=== PATIENT | male | born 1965 | race Caucasian/White ===

== ENCOUNTER 2022-08-27 08:18 | Day surgery (SDC) | payer BC ==
[2022-08-23 13:48] VITALS: BMI 35.6
[2022-08-27] MEDS ORDERED: BUPIVACAINE HCL/PF 2.5 MG/ML - 30 ML VIAL IJ ONE (10:09)
[2022-08-27] MEDS ORDERED: LIDOCAINE HCL 2% 100 MG/5 ML DISP.SYRIN ONE (11:18)
[2022-08-27] MEDS ORDERED: PROPOFOL 20 ML ONE (11:19)
[2022-08-27] MEDS ORDERED: MIDAZOLAM HCL 2 MG/2 ML SINGLE DOSE VIAL ONE (11:19)
[2022-08-27] MEDS ORDERED: EPINEPHrine 1:1,000 1,000 MCG/ML ML ONE (11:54)
[2022-08-27] MEDS ORDERED: ceFAZolin SODIUM 1 GM VIAL ONE (12:28)
[2022-08-27] MEDS ORDERED: ONDANSETRON 4 MG/2 ML VIAL IVPUSH PRN (13:03)
[2022-08-27] MEDS ORDERED: PROMETHAZINE HCL 25 MG/1 ML VIAL IVPUSH PRN (13:03)
[2022-08-27] MEDS ORDERED: oxyCODONE HCL 5 MG TABLET PO PRN ×2 (13:03)
[2022-08-27] MEDS ORDERED: LACTATED RINGERS SOLUTION 1,000 ML IV SCH (13:15)
[2022-08-27] MEDS ORDERED: KETOROLAC TROMETHAMINE 30 MG/1 ML VIAL IVPUSH ONE (13:15)
[2022-08-27 13:42] VITALS: RESP 16
[2022-08-27] MEDS ORDERED: KETOROLAC TROMETHAMINE 30 MG/1 ML VIAL ONE (14:06)
[2022-08-27] MEDS ORDERED: diphenhydrAMINE HCL 25 MG CAPSULE (FP) PO ONE ×2 (14:38→14:40)
[2022-08-27] MEDS ORDERED: diphenhydrAMINE HCL 50 MG CAPSULE PO ONE (14:38)
[2022-08-27 14:49] VITALS: TEMP 97.8
[2022-08-27 16:52] VITALS: BP 151/86; PULSE 76
== END 2022-08-27 16:15 | disposition home or self-care (01) ==
LOC: FASU 08:18
PROVIDERS: ATTEND Orthopaedic Surgery
PROC: 0SBD4ZZ Excision of Left Knee Joint, Percutaneous Endoscopic Approach (ICD-10-PCS; 2022-08-27)
PROC: 0SBD4ZZ Excision of Left Knee Joint, Percutaneous Endoscopic Approach (ICD-10-PCS; principal; 2022-08-27 12:35)
DX: S83.242A Other tear of medial meniscus, current injury, left knee, initial encounter (principal); S83.282A Other tear of lateral meniscus, current injury, left knee, initial encounter; S83.8X2A Sprain of other specified parts of left knee, initial encounter; M65.862 Other synovitis and tenosynovitis, left lower leg; X58.XXXA Exposure to other specified factors, initial encounter; Y93.9 Activity, unspecified; Y92.9 Unspecified place or not applicable
CPT/HCPCS: 94760